=== PATIENT | female | born 1955 | race Caucasian/White ===

== ENCOUNTER → 2017-02-10 | Outpatient (CLI) | payer MEDICAID ==
[2017-02-10 08:31] LABS: Anion Gap 10 mmol/L; Blood Urea Nitrogen 15 mg/dL (7-17); Carbon Dioxide 29 mmol/L (22-30); Chloride 103 mmol/L (98-107); Glucose 87 mg/dL (74-99); Potassium 3.9 mmol/L (3.5-5.1); Sodium 142 mmol/L (137-145)
== END | disposition home or self-care (01) ==
LOC: LABWHC1 07:51
PROVIDERS: ATTEND Family Medicine
DX: I10 Essential (primary) hypertension (principal)
CPT/HCPCS: 36415; 80048

== ENCOUNTER → 2017-05-02 | Outpatient (CLI) | payer MEDICAID ==
[2017-05-02 07:52] LABS: Basophils % (A) 1 %; Eosinophils # (A) 0.1 k/uL (0-0.7); Eosinophils % (A) 1 %; HCT 41.1 % (34.0-46.0); HGB 14.2 gm/dL (11.4-16.0); Lymphocytes # (A) 1.4 k/uL (1.0-4.8); Lymphocytes % (A) 26 %; MCH 28.9 pg (25.0-35.0); MCHC 34.6 g/dL (31.0-37.0); MCV 83.4 fL (80.0-100.0); Mean Platelet Volume 7.2; Monocytes # (A) 0.4 k/uL (0-1.0); Monocytes % (A) 7 %; Neutrophils # (A) 3.4 k/uL (1.3-7.7); Neutrophils % (A) 63 %; Platelet Count 216 k/uL (150-450); RBC 4.93 m/uL (3.80-5.40); RDW 12.7 % (11.5-15.5); WBC 5.4 k/uL (3.8-10.6)
[2017-05-02 08:19] LABS: ALT 21 U/L (9-52); AST 22 U/L (14-36); Albumin 4.4 g/dL (3.5-5.0); Alkaline Phosphatase 64 U/L (38-126); Anion Gap 11 mmol/L; Blood Urea Nitrogen 19 mg/dL (7-17); Calcium 9.9 mg/dL (8.4-10.2); Carbon Dioxide 29 mmol/L (22-30); Chloride 101 mmol/L (98-107); Cholesterol 212 mg/dL (<200); Glucose 87 mg/dL (74-99); HDL Cholesterol 87 mg/dL (40-60); LDL Cholesterol,Calculated 103 mg/dL (0-99); Potassium 4.3 mmol/L (3.5-5.1); Sodium 141 mmol/L (137-145); Total Protein 7.2 g/dL (6.3-8.2); Triglycerides 110 mg/dL (<150)
== END | disposition home or self-care (01) ==
LOC: LABWHC1 06:58
PROVIDERS: ATTEND Family Medicine
DX: Z00.01 Encounter for general adult medical examination with abnormal findings (principal); I10 Essential (primary) hypertension
CPT/HCPCS: 36415; 80053; 80061; 85025

== ENCOUNTER → 2017-05-02 | Outpatient (CLI) | payer MEDICAID ==
--- NOTE | 2017-05-03 08:35 | MM ---
Reason for exam: screening (asymptomatic). Last mammogram was performed 1 year and 8 months ago. History: Patient is postmenopausal. Took hormonal contraceptives for 2 years. Physical Findings: A clinical breast exam by your physician is recommended on an annual basis and results should be correlated with mammographic findings. MG Screening Mammo w CAD Bilateral CC and MLO view(s) were taken. Prior study comparison: August 27, 2015, left breast MG work up mamm w CAD LT. August 24, 2015, bilateral MG screening mammo w CAD. There are scattered fibroglandular densities. There is no discrete abnormality. No significant changes when compared with prior studies. ASSESSMENT: Negative, BI-RAD 1 RECOMMENDATION: Routine screening mammogram of both breasts in 1 year.
== END | disposition home or self-care (01) ==
LOC: RADMAMWWP 09:16
PROVIDERS: ATTEND Obstetrics & Gynecology
DX: Z12.31 Encounter for screening mammogram for malignant neoplasm of breast (principal)
CPT/HCPCS: 77067

== ENCOUNTER → 2019-01-24 | Outpatient (CLI) | payer MEDICAID ==
--- NOTE | 2019-01-25 14:17 | MM ---
Reason for exam: screening (asymptomatic). Last mammogram was performed 1 year and 9 months ago. History: Patient is postmenopausal. Took hormonal contraceptives for 2 years. Physical Findings: A clinical breast exam by your physician is recommended on an annual basis and results should be correlated with mammographic findings. MG Screening Mammo w CAD Bilateral CC and MLO view(s) were taken. Prior study comparison: May 02, 2017, bilateral MG screening mammo w CAD. August 27, 2015, left breast MG work up mamm w CAD LT. There are scattered fibroglandular densities. No significant changes when compared with prior studies. ASSESSMENT: Benign, BI-RAD 2 RECOMMENDATION: Routine screening mammogram of both breasts in 1 year.
== END | disposition home or self-care (01) ==
LOC: RADMAMWWP 14:10
PROVIDERS: ATTEND Obstetrics & Gynecology
DX: Z12.31 Encounter for screening mammogram for malignant neoplasm of breast (principal)
CPT/HCPCS: 77067

== ENCOUNTER → 2019-09-10 | Outpatient (CLI) | payer OTHER ==
--- NOTE | 2019-09-10 09:26 | US ---
EXAMINATION TYPE: US abdomen complete DATE OF EXAM: 09/10/2019 COMPARISON: US 2014 CLINICAL HISTORY: R10.11 RUQ PAIN. RUQ pain and nausea x 2 weeks, history of cholecystectomy EXAM MEASUREMENTS: Liver Length: 16.2 cm Gallbladder Wall: surgically absent CBD: 0.5 cm Spleen: 10.2 cm Right Kidney: 9.7 x 3.9 x 3.9 cm Left Kidney: 9.4 x 4.8 x 4.7 cm Pancreas: wnl Liver: wnl Gallbladder: surgically absent Evidence for sonographic Arredondo's sign: no CBD: wnl Spleen: wnl Right Kidney: wnl Left Kidney: wnl Upper IVC: wnl Abd Aorta: wnl The liver is homogenous. The intrahepatic portion of the IVC and proximal abdominal aorta are within normal limits. Common bile duct is unremarkable. The visualized portions of the pancreas are homog enous. The spleen is unremarkable. Kidneys are symmetric and free of hydronephrosis. No renal lesi ons are seen. IMPRESSION: No distinct abnormality is appreciated.
== END | disposition home or self-care (01) ==
LOC: RADUSWWP 08:40
PROVIDERS: ATTEND Family Medicine
DX: R10.11 Right upper quadrant pain (principal)
CPT/HCPCS: 76700

== ENCOUNTER → 2020-04-10 | Outpatient (CLI) | payer OTHER ==
--- NOTE | 2020-04-11 17:07 | ECHOF ---
Referral Reason:R00.2 Palpitations MEASUREMENTS -------- HEIGHT: 170.2 cm WEIGHT: 63.5 kg BP: RVIDd: 2.4 cm (< 3.3) IVSd: 1.0 cm (0.6 - 1.1) LVIDd: 3.8 cm (3.9 - 5.3) LVPWd: 1.2 cm (0.6 - 1.1) IVSs: 1.2 cm LVIDs: 2.7 cm LVPWs: 1.1 cm LAESV Index (A-L): 10.75 ml/m Ao Diam: 2.6 cm (2.0 - 3.7) AV Cusp: 1.5 cm (1.5 - 2.6) MV EXCURSION: 15.271 mm (> 18.000) MV EF SLOPE: 81 mm/s (70 - 150) EPSS: 0.3 cm MV E Gold: 1.04 m/s MV DecT: 202 ms MV A Gold: 0.72 m/s MV E/A Ratio: 1.43 RAP: 5.00 mmHg RVSP: 27.49 mmHg FINDINGS -------- Sinus rhythm. This was a technically adequate study. The left ventricular size is normal. There is borderline concentric left ventricular hypertrophy. Overall left ventricular systolic function is normal with, an EF between 55 - 60 %. The diastolic filling pattern is normal for the age of the patient {E/E'}. The right ventricle is normal in size. Normal LA size by volume 22+/-6 ml/m2. The right atrial size is normal. Interatrial and interventricular septum intact. There is no evidence of aortic regurgitation. There is no evidence of aortic stenosis. There is trace mitral regurgitation. Mild tricuspid regurgitation present. There is no evidence of pulmonary hypertension. The right v entricular systolic pressure, as measured by Doppler, is 27.49mmHg. There is no pulmonic regurgitation present. The aortic root size is normal. Normal inferior vena cava with normal inspiratory collapse consistent with estimated right atrial pre ssure of 5 mmHg. There is no pericardial effusion. CONCLUSIONS -------- 1. The left ventricular size is normal. 2. There is borderline concentric left ventricular hypertrophy. 3. Overall left ventricular systolic function is normal with, an EF between 55 - 60 %. 4. The diastolic filling pattern is normal for the age of the patient {E/E'} 5. There is trace mitral regurgitation. 6. Mild tricuspid regurgitation present. SKIVER OPERATOR: Irma Siddiqui RDCS
--- NOTE | 2020-04-20 11:58 | P.CEMON ---
Event monitor note: Description of monitor: Patient wore an event monitor for a total of 7 days from 04/10/2020 until 04/17/2020. Findings: Resting heart rate revealed normal sinus rhythm. Patient's lowest heart rate was 46 bpm with sinus bradycardia at 117 in the morning. Patient's maximum heart rate was sinus tachycardia with a heart rate of 144 bpm at 6:00 PM on 04/11. Patient had rare PACs, 3 beat run of supraventricular tachycardia, and a 5 beat run of supraventricular tachycardia with no symptoms noted during these episodes. Patient did have 10 patient activated events with symptoms not specified which corresponded with normal sinus rhythm. There was no evidence of PVCs, ventricular ectopy, atrial fibrillation or pauses greater than 2 seconds. Conclusions 1. No evidence of PVCs, ventricular ectopy, atrial fibrillation or pauses greater than 2 seconds. 2. Normal sinus rhythm 3. Very rare brief 3-5 beat runs of SVT 4. Patient activated events corresponding with normal sinus rhythm.
== END ==
LOC: RADECHMAIN 12:01
PROVIDERS: ATTEND Family Medicine
DX: I08.1 Rheumatic disorders of both mitral and tricuspid valves (principal); I47.1 Supraventricular tachycardia
CPT/HCPCS: 93270; 93306

== ENCOUNTER → 2021-03-05 | Outpatient (CLI) | payer OTHER ==
--- NOTE | 2021-03-05 14:29 | US ---
EXAMINATION TYPE: US abdomen complete DATE OF EXAM: 03/05/2021 COMPARISON: Multiple US's , most recent dated 09/10/2019 CLINICAL HISTORY: R10.11 right upper quad pain. EXAM MEASUREMENTS: Liver Length: 13.4 cm Gallbladder Wall: Surgically absent CBD: 0.4 cm Spleen: 10.1 cm Right Kidney: 10.2 x 3.9 x 4.0 cm Left Kidney: 9.3 x 5.6 x 6.0 cm Pancreas: visualized portions wnl Liver: wnl Gallbladder: Surgically absent Evidence for sonographic Arredondo's sign: Yes CBD: wnl Spleen: wnl Right Kidney: No hydronephrosis or masses seen Left Kidney: No hydronephrosis or masses seen Upper IVC: wnl Abd Aorta: wnl IMPRESSION: 1. Abdomen ultrasound appears normal post cholecystectomy.
== END | disposition home or self-care (01) ==
LOC: RADUSWWP 07:29
PROVIDERS: ATTEND Family Medicine
DX: R10.11 Right upper quadrant pain (principal); Z90.49 Acquired absence of other specified parts of digestive tract
CPT/HCPCS: 76700

== ENCOUNTER → 2024-01-08 | Outpatient (CLI) | payer OTHER ==
--- NOTE | 2024-01-08 09:06 | MM ---
Reason for Exam: Screening (asymptomatic). Last mammogram was performed 5 year(s) and 0 month(s) ago. Patient History: Menarche at age 15. First Full-Term at age 25. Postmenopausal. Patient used Hormonal Contraceptives for 2 years. Risk Values: Thea 5 year model risk: 1.4%. NCI Lifetime model risk: 4.8%. Prior Study Comparison: 08/27/2015 Left Diagnostic Mammogram, [facility]. 05/02/2017 Bilateral Screening Mammogram, [facility]. 01/24/2019 Bilateral Screening Mammogram, [facility]. Tissue Density: There are scattered areas of fibroglandular density. Findings: Analyzed By CAD. Right breast: There is no suspicious group of microcalcifications or new suspicious mass. Left breast: There is no suspicious group of microcalcifications or new suspicious mass. Overall Assessment: Negative, BI-RAD 1 Management: Screening Mammogram of both breasts in [address] [facility] will attempt to contact patient to return for supplemental views and ultrasound if indicated. Patient should continue monthly self-breast exams. A clinical breast exam by your physician is recommended on an annual basis. This exam should not preclude additional follow-up of suspicious palpable abnormalities. Note on Thea scores and lifetime risk: 1. A Thea score greater than 3% is considered moderate risk. If this is the case, consider specialist referral to assess eligibility for a risk reducing agent. 2. If overall lifetime risk for the development of breast cancer is 20% or higher, the patient may qualify for future screening with alternating mammogram and breast MRI. [facility], , 01/08/2024 9:03 AM. Electronically signed and approved by: Jarrod Marc DO
--- NOTE | 2024-01-08 11:16 | BD ---
EXAMINATION TYPE: Axial Bone Density DATE OF EXAM: 01/08/2024 CLINICAL HISTORY: 68 years old Female. ICD-10 CODE: Z78.0 MENOPAUSAL , Additional History: Height: 66 Weight: 138 FRAX RISK QUESTIONS: History of Fracture in Adulthood: yes Secondary Osteoporosis: RISK FACTORS HISTORY OF: MEDICATIONS: EXAM MEASUREMENTS: Bone mineral densitometry was performed using the [employer] System. Bone mineral density as measured about the Lumbar spine is: ----- L1-L4(G/cm2): 0.811 T Score Values are as follows: ----- L1: -2.6 ----- L2: -3.1 ----- L3: -3.1 ----- L4: -3.6 ----- L1-L4: -3.1 Z Score Values are as follows: ----- L1: -0.9 ----- L2: -1.4 ----- L3: -1.4 ----- L4: -1.9 ----- L1-L4: -1.4 Bone mineral density has: trend unavailable since study of: 01-04-2008 Bone mineral density about the R hip (g/cm2): 0.673 Bone mineral density about the L hip (g/cm2): 0.672 T Score values are as follows: -----R Neck: -2.7 -----L Neck: -2.9 -----R Total: -2.7 -----L Total: -2.7 Z Score values are as follows: -----R Neck: -1.1 -----L Neck: -1.3 -----R Total: -1.3 -----L Total: -1.3 Bone mineral density has: Decreased -15.8% since study of: 01-04-2008 FRAX%s: The graph provided illustrates a 24.7% chance for a major osteoporotic fx and a 7.3% chance f or the hips probability for fx in 10 years time. IMPRESSION: Osteoporosis (T Score less than -2.5). There is increased fracture risk and therapy is usually indicated based on age. Re-Screen 1-2 years. NOTE: T-SCORE=SD OF THE YOUNG ADULT MEAN. [facility], , 01/08/2024 11:14 AM
== END | disposition home or self-care (01) ==
LOC: RADMAMWWP 08:09
PROVIDERS: ATTEND Family Medicine
DX: Z12.31 Encounter for screening mammogram for malignant neoplasm of breast (principal); Z78.0 Asymptomatic menopausal state; R92.323 Mammographic fibroglandular density, bilateral breasts; M81.8 Other osteoporosis without current pathological fracture
CPT/HCPCS: 77063; 77067; 77080